=== PATIENT | female | born 2005 | race Caucasian/White ===

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

== ENCOUNTER 2024-09-27 15:18 | Emergency (ER) | payer OTHER, SELFPAY ==
[2024-09-27 15:28] VITALS: BP 146/85; PULSE 121; RESP 18; TEMP 36.9; O2SAT 98
--- NOTE | 2024-09-27 15:33 | ED_ITS ---
HPI - URI/Sore Throat General Chief Complaint: Upper Respiratory Infection Stated Complaint: sore throat Time Seen by Provider: 09/27/24 15:34 History of Present Illness HPI Narrative: 19-year-old female presented for complaint of sore throat, onset 0200. Patient reports few days of postnasal drainage. Not taking anything for symptoms. Denies cough, shortness of breath, wheezing, nausea vomiting, fevers or lethargy. Related Data Home Medications ?Medication ?Instructions ?Recorded ?Confirmed ?Last Taken ?Type norethindrone 1 mg-ethinyl tablet 09/27/24 Unknown History estradiol 20 mcg (21)-iron 75 mg (7) tablet (Aurovela Fe 1-20 (28)) Allergies Allergy/AdvReac Type Severity Reaction Status Date / Time No Known Allergies Allergy Verified 09/27/24 15:43 Review of Systems Review of Systems: CONSTITUTIONAL: Denies body aches, fever, chills, or sweats. EYES: Denies visual changes, redness, or discharge. ENT: reports rhinorrhea, post nasal drainage, sore throat denies otalgia. CARDIOVASCULAR: Denies chest pain, palpitations, or edema. RESPIRATORY: Denies dyspnea. GASTROINTESTINAL: Denies abdominal pain, nausea, vomiting, or diarrhea. SKIN: Denies rash NEUROLOGIC: Denies headache PMF Past Medical History Medical History (Updated 09/27/24 @ 15:55 by Gem Madden, [employer]) No pertinent past medical history Surgical History Surgical History No pertinent past surgical history Family History Family History Mother Family history non-contributory Social History Social History Smoking status: Never smoker Alcohol intake: never Substance use: never Living arrangements: with family Occupation/Education: student Gender identity (if verbalized by the patient): Female Spiritual care concerns: No Exam Narrative: GENERAL: well-appearing, no acute distress. EYES: conjunctivae clear ENT: Mucous membranes moist. TM pearly quinones with normal light reflex bilaterally; no tragal tenderness. Oropharynx not erythematous without lesions. Tonsils not enlarged and without exudate. No drooling, no hoarseness, no trismus, uvula midline. No tripod positioning, hot potato voice, or soft palate swelling. NECK: Supple. No lymphadenopathy CHEST: Clear to auscultation, breath sounds equal. No respiratory distress, speaks in full sentences. HEART: Regular rate and rhythm. No murmur heard. SKIN: Warm, dry, no rash. NEURO: Alert and oriented x3. Course Course Emergency Course: Patient is aware of diagnosis, understands and agrees to treatment plan. Anticipatory guidance given. Patient agrees to follow-up as directed and is aware of reasons to seek care at the emergency department. Portions of this record may have been created with voice recognition software Level of Care: Express Care Visit Vital Signs Vital signs: Vital Signs Temperature 98.5 F 09/27/24 15:28 Pulse Rate 121 H 09/27/24 15:28 Respiratory Rate 18 09/27/24 15:28 Blood Pressure 146/85 H 09/27/24 15:28 Pulse Oximetry 98 09/27/24 15:28 Oxygen Delivery Room Air 09/27/24 15:28 Temperature 98.5 F 09/27/24 15:28 Pulse Rate 121 H 09/27/24 15:28 Respiratory Rate 18 09/27/24 15:28 Blood Pressure 146/85 H 09/27/24 15:28 Pulse Oximetry 98 09/27/24 15:28 Oxygen Delivery Room Air 09/27/24 15:28 MDM - URI/Sore Throat MDM Narrative Medical decision making narrative: Negative strep result reviewed with pt. Advise supportive treatments. Patient is appropriate for outpatient treatment and follow-up. Differential Diagnosis Differential diagnosis: Likely upper respiratory infection, viral infection and pharyngitis Discharge Plan Discharge Clinical Impression: Upper respiratory infection Qualifiers: URI type: unspecified URI Qualified Code(s): J06.9 - Acute upper respiratory infection, unspecified Patient Disposition: Home Condition: Stable Instructions: Antibiotic Form, Strep Throat (ED) Additional Instructions: Rapid strep swab was negative today You will be notified in a few days if the culture comes back positive for strep, and appropriate antibiotics will be called in at that time. if symptoms are due to a viral illness, it is not treated with antibiotics. Viral symptoms can be present for up to 10-14 days. Recommendations: Flonase spray and Zyrtec for sinus congestion Cough syrup may cause drowsiness; avoid driving or take it at night time. Tylenol every 8 hours as needed for pain/fever Soft foods, cool liquids, warm tea. Gargle with warm saltwater twice a day. Chloraseptic spray and throat lozenges. Rest and stay hydrated. --Follow up with your PCP --Go to the ER immediately if you cannot swallow your saliva, trouble breathing/wheezing, throat swelling, pain is persistent and severe Patient Language: Romanian Prescriptions: No Action No Home Medications Follow-up/Referrals: Yunior,Miranda Stark MD [Primary Care Provider] - Time of Disposition: 15:55
[2024-09-27 15:51] LABS: EDSTREPNEGPOS1 Negative (Negative)
--- OUTSIDE RECORDS SUMMARY | 2024-09-27 16:39 | XMS_ITS | Data Portability ---
Author Organization [facility] [place] Address [address] [place] [address] Care Team Providers Care Chief Pilot Name Role Phone VÍCTOR FLORES Primary Care Provider Assessment No assessment recorded. Plan of Treatment Reminders Order Date Submit Date Provider Last Modified By Organization Details Last Modified Time Details Appointments None recorded. Lab CT + NG + TV, RNA, unspecified specimen 2024 025 [facility] (Lab), [address], [place], [address], 13:54:22 Referral None recorded. Procedures None recorded. Surgeries None recorded. Imaging None recorded. Medication Orders norethindro ne 1 mg-ethinyl estradiol 20 mcg (21)-iron 75 mg (7) tablet 2024 025 [facility] [id number], [address], 16:49:14 Patient TargetsNo targets recorded. Patient InstructionsNo instructions recorded. Reason for Referral None Reported. Results Created Date Observation Date Name Description Value Unit Range Abnormal Flag Note LastModifiedBy Organization Detail LastModifiedTime 07/25/1907/25/2024 CT/GC AND TRICH OMONA S VAGIN RON (RRNA ), URINE chlamydia trachomatis, PCR Negati ve negati ve Not Available [facility] (Lab) [address] [place], [address], 07/26/2024 13:54:22 07/25/19 25 07/25/2024 CT/GC AND TRICH OMONA S VAGIN RON (RRNA ), URINE neisseria gonorrhoeae, PCR Negati ve negati ve Not Available [facility] (Lab) [address], [place], [address], 07/26/2024 13:54:22 07/25/19 25 07/25/2024 CT/GC AND TRICH OMONA S VAGIN RON (RRNA ), URINE trichomonas vaginalis ribosomal RNA (rrna) Negati ve negati ve Not Available [facility] (Lab) [address], [place], [address], 07/26/2024 13:54:22 Result Notes None recorded. Medical Equipment None Reported. Allergies No known drug allergies Medications Name Sig Start Date Stop Date Status Note LastModified by Organization Details LastModified Time amoxicillin 875 mg tablet TAKE 1 TABLET BY MOUTH TWICE A DAY FOR 10 DAYS 07/21 completed Not Available Not Available Not Available ondansetron 4 mg disintegrat ing tablet PLACE 2 TABLETS EVERY 8 HOURS BY TRANSLING UAL ROUTE NEEDED. active Not Available Not Available No t Available fluticasone propionate 50 mcg/actuati on nasal spray,suspe nsion SPRAY 1 SPRAY IN EACH NOSTRIL EVERY DAY active Not Available Not Available No t Available Aurovela Fe 1-20 (28) 1 mg-20 mcg (21)/75 mg (7) tablet Take 1 tablet every day by oral route. active Not Available Not Available No t Available Vitals Date Recorded Body height Body mass index (BMI) Body mass index (BMI) Percentile per age and sex Body weight Systolic blood pressure Diastolic blood pressure Provider Name and Address Organization Details Last Updated DateTime 162.56 cm 25.8 kg/m2 82 % 12953.2 9 g 139 mm[Hg] 88 mm[Hg] Yomaira Navarro [facility] 16:27:23 Social History Question Answer Notes LastModified by Organizat ion Details LastModified Time Tobacco Smoking Status Never Smoker Yomaira Navarro [facility] 07/25/2024 16:30:14 Do You Have An Advance Directive? No [email or web address] Information n ot available 07/25/2024 What Is Your Level Of Alcohol Consumption? None Information not available 07/25/2024 Are You Blind Or Do You Have Difficulty Seeing? No Information n ot available 07/25/2024 What Is Your Level Of Caffeine Consumption? Heavy [email or web address] Information not available 07/25/2024 How Much Tobacco Do You Chew? None [email or web address] Information not available 07/25/2024 In The 14 Days Before Symptom Onset, Have You Had Close Contact With A Laboratory-confirm ed COVID-19 While That Case Was Ill? No Information n ot available 07/25/2024 In The 14 Days Before Symptom Onset, Have You Had Close Contact With A Person Who Is Under Investigation For COVID-19 While That Person Was Ill? No [email or web address] Information not available 07/25/2024 Have You Been To An Area Known To Be High Risk For COVID-19? No Information not available 07/25/2024 Are You Currently Employed? Yes [email or web address] Information not available 07/25/2024 Are You Deaf Or Do You Have Serious Difficulty Hearing? No Information not available 07/25/2024 What Type Of Diet Are You Following? REGULAR [email or web address] Information n ot available 07/25/2024 What Is The Highest Grade Or Level Of School You Have Completed Or The Highest Degree You Have Received? [id number] Information not available 07/25/2024 What Is Your Occupation? [employer] Information not available 07/25/2024 Are There Any Guns Present In Your Home? No Information not available 07/25/2024 Do You Use Protection During Sex? Usually [email or web address] Information not available 07/25/2024 Do You Use Your Seat Belt Or Car Seat Routinely? Yes [email or web address] Information not available 07/25/2024 Are You Sexually Active? Yes [email or web address] Information not available 07/25/2024 Do You Have Smoke And Carbon Monoxide Detectors In Your Home? Yes [email or web address] Information not available 07/25/2024 How Much Tobacco Do You Smoke? No [email or web address] Information not available 07/25/2024 Do You Feel Stressed (tense, Restless, Nervous, Or Anxious, Or Unable To Sleep At Night)? [id number] [email or web address] Information not available 07/25/2024 Do You Use Any Illicit Or Recreational Drugs? No [email or web address] Information not available 07/25/2024 Do You Use Sunscreen Routinely? No [email or web address] Information not available 07/25/2024 Have You Used IV Drugs? No [email or web address] Information not available 07/25/2024 Sex: Unknown Functional Status Question Answer Note LastModified by Organizat ion Details LastModified Time Do you have difficulty walking or climbing stairs? No Information not available 07/25/2024 Are you able to walk? [email or web address] Information not available 07/25/2024 Are you able to care for yourself? Yes Information not available 07/25/2024 Do you have difficulty dressing or bathing? No Information not available 07/25/2024 What is your exercise level? Occasional Information not available 07/25/2024 Mental Status None recorded. Family History Relationship Description Onset Age of this Age Resolved Age Notes LastModified by Organization Details LastModified Time Unspecified Relation Family history unknown Not available 2024 16:21:20 Medical History Condition Response No Past Medical History Y Gynecological History Statement/Question Response Flow Moderate Date of LMP 07/24/2024 On BCP's at Conception? N N Was last menstrual period normal Y STIs/STDs N HPV Vaccine N Current Control Method BCPs Sexually Active? Y Unknown Menses Monthly Y Age of first menstrual cycle 10 Sexual Problems? N Desired Control Method Unknown LMP Definite N Obstetrics History GPAL:G 0 P 0 0 0 0 Past Encounters Encounter ID Performer Location Encounter Start Date Encounter Closed Date Diagnosis/Indication Diagnosis SNOMED-CT Code Diagnosis ICD10 Code Diagnosis Note [id number] MITCHEL LASSITER NP [place] [address] [address] 07/25/2024 16:19:43 07/25/2024 16:51:06 Irregular periods 55682228 N92.6 Patient to continue to take BCPs as directed. Refills sent. Risks/bene fits reviewed. Reviewed the importance of not missing pills.Symone ent will follow-up if bleeding irregulari ty persists as alternativ e NESS may be prescribed to help regulate cycles.RTO in one year for WWE/pap smear and PRN Venereal d isease screening 258587987 Z11.3 Pt requested STI testing.Wi ll r/o GC/CT/tric h infection with urine testing.Di scussed the various types of STDs, related symptoms and the potential consequenc es (including effects on fertility) of STD infections . Reviewed ways to limit exposure and prevention techniques . Health Concerns Section Related Observation LastModified by Organization Detai ls LastModified Time None Recorded Concern Status LastModified by Organization Details LastModified Time None Recorded Advance Directives Directive N: Payers Encounter Date Sequence Insurance Name Policy Number Policy Gutierrez Covered Member ID Gutierrez Member ID Guarantor Name 07/25/2024 1 [facility] [id number] Bella Najera [id number] Bella Najera Notes Date Note Type Note Provider Name and Address Organization Details Recorded Time 07/25/2024 text/html New patient here to establish care and to discuss irregular bleeding.Patient states that she started OCP one year ago prescribed by PCP and her cycles have been regular until this past month. Patient states that she had unprotected intercourse with a new partner 14 days ago and started having light bleeding/spotting the next day. Patient states that the spotting continued until her placebo pills of her pill pack (which was yesterday) and then she had a moderate flow period. Patient denies missing pills. Denies vaginal itching, odor, discharge, GI/ sx.Denies other concerns today. MITCHEL LASSITER, ISAIAH [address], [place], [address], [facility] 07/25/2024 16:50:15 OBGyn Episode No OBEpisode recorded.
--- OUTSIDE RECORDS SUMMARY | 2024-09-27 16:39 | XMS_ITS | Clinical Summary ---
Author Organization [facility] Address [address] [place] [address] Care Team Providers Care Wheel Alignment Technician Name Role Phone Unavailable Primary Care Provider Unavailabl e Source Comments [facility],non-owned Affiliates and Associated Physician Practices is amultiple site organization consisting of ambulatory clinics and hospital sitesin [place], [place], [place] and [place]. This disclosure is being madepursuant to the Care Everywhere program and may not contain all information available regarding this patient. Last updated 18.[facility] Allergies No known active allergies Social History Tobacco Use Types Packs/Day Years Used Date Smoking Tobacco: Never Assessed Sex and Gender Information Value Date Recorded Sex Assigned at Not on file Gender Identity Not on file Sexual Orientation Not on file Plan of Treatment Health Maintenance Due Date Last Done Comments HIV SCREENING 2019 HPV VACCINE (1 - 3-dose series) 2019 CHLAMYDIA/GONORRHEA SCREENING 2020 MENINGOCOCCAL (Group B) VACC INE SHARED DECISION-MAKING (1 of 2 - Standard) 2020 HEPATITIS C SCREENING 03/30/2022 DTAP/TDAP/TD VACCINES (1 - Tdap) 2023 HEPATITIS B VACCINE (1 of 3 - 19+ 3-dose series) 2023 COVID-19 VACCINE ( - 2023-2 5 season) 2024 DEPRESSION SCREENING 06/21/2024 INFLUENZA VACCINE (Season Ended) 2025 ZOSTER VACCINE (1 of 2) 2054 HIB VACCINE Aged Out No longer eligi ble based on patient's age to complete this topic MENINGOCOCCAL GROUPS A/C/Y/W VACCINE Aged Out No longer eligible b ased on patient's age to complete this topic PNEUMOCOCCAL VACCINE Aged Out No long er eligible based on patient's age to complete this topic
== END 2024-09-27 15:58 | disposition home or self-care (01) ==
PROVIDERS: Emergency Provider Nurse Practitioner Family; PCP Family Medicine
DX: J06.9 Acute upper respiratory infection, unspecified (principal)
CPT/HCPCS: 87081; 87880; 99213; G0463